=== PATIENT | male | born 1990 | race Caucasian/White ===

== ENCOUNTER 2024-12-16 18:59 | Emergency (ER) | payer OTHER ==
[~2024-12-16] VITALS: Ht 170.2 cm; Wt 70.0 kg
[2024-12-16 19:26] VITALS: TEMP 98.1
[2024-12-16] MEDS ORDERED: ALBU18HF12 IH (19:33)
[2024-12-16 19:48] VITALS: BP 122/73; O2SAT 98
[2024-12-16] MEDS ORDERED: PRED-554 PO (21:31)
[2024-12-16] MEDS: PredniSONE 20 MG TABLET PO ONE (21:53)
[2024-12-16] MEDS: IPRATROPIUM BROMIDE 0.5 MG/2.5 ML NEB SOLUTION NEB ONE (21:53)
[2024-12-16] MEDS: ALBUTEROL SULFATE HFA 90 MCG/PUFF 8 GM INHALER IH ONE (21:53)
[2024-12-16] MEDS: ALBUTEROL SULFATE 2.5 MG/0.5 ML NEB SOLUTION NEB ONE (21:53)
[2024-12-16 21:55] VITALS: PULSE 102; RESP 19; O2SAT 98
[2024-12-16 22:10] VITALS: PULSE 103; RESP 18; O2SAT 100
== END 2024-12-16 23:30 | disposition home or self-care (01) ==
LOC: EMS 18:59
DX: J45.901 Unspecified asthma with (acute) exacerbation (principal); F19.10 Other psychoactive substance abuse, uncomplicated; F15.90 Other stimulant use, unspecified, uncomplicated
CPT/HCPCS: 99283; 94640; J7512; J3535